=== PATIENT | male | born 1995 | race Caucasian/White ===

== ENCOUNTER 2016-12-08 18:13 | Emergency (ER) | payer OTHER | END 2016-12-08 21:15 | disposition home or self-care (01) | LOC: D.ER 18:13 | DX: R51 Headache (principal); V49.9XXA Car occupant (driver) (passenger) injured in unspecified traffic accident, initial encounter; Y93.89 Activity, other specified; Y92.410 Unspecified street and highway as the place of occurrence of the external cause ==